=== PATIENT | female | born 1990 | race Caucasian/White ===

== ENCOUNTER 2017-05-12 09:43 | Emergency (ER) | payer OTHER ==
[2017-05-12 09:51] VITALS: BP 116/80; BMI 27.4
--- NOTE | 2017-05-12 10:15 | DR.EXTPAIN ---
HPI - Time seen Time seen: 10:15 - PCP Primary Care Physician: - Complaint/Symptoms Chief Complaint:: WAS IN A TREE, BRANCH SNAPPED. 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 - Family History History of Family Medical Conditions: Yes Family Medical History: Diabetes Mellitus, Cancer - Social History Does any household member use tobacco: No Alcohol Use: Occasionally Do you use any recreational Drugs:: No Lives With: Family Lives Where: Home - infectious screening In the last 2 months have you had wt loss of >10#?: NO Have you had fever, night sweats or hemotysis?: No Have you traveled outside the country in the last 6 months?: No Isolation: Standard ROS - Review of Systems Constitutional: No Symptoms Reported Eyes: No Symptoms Reported ENTM: No Symptoms Reported Respiratoy: No Symptoms Reported Cardiovascular: No Symptoms Reported Gastrointestinal/Abdominal: No Symptoms Reported Genitourinary: No Symptoms Reported Neurological: No Symptoms Reported Musculoskeletal: Ankle (left ankle pain, no bruise) PE - Vital Signs Vitals: Temperature 98.4 F Pulse Rate 94 Respiratory Rate 20 Blood Pressure 116/80 O2 Sat by Pulse Oximetry 100 - General Limitations: No Limitations General Appearance: Alert, In No Apparent Distress - Head Head Exam: Normal Inspection - Eyes Eye exam: Normal Appearance, EOMI. negative: Scleral Icterus, Conjunctival Injection - ENT ENT Exam: Normal Exam, Normal Oropharynx - Neck Neck Exam: Normal Inspection, Full ROM, Trachea Midline - Respiratory Respiratory Exam: negative: Accessory Muscle Use, Respiratory Distress - Extremities Extremities Exam: Normal Inspection, Full ROM, Tenderness (left ankle) - Lower Extremities Knee Exam: Normal Inspection, Full ROM. negative: Tenderness, Swelling Lower Leg Exam: Normal Inspection, Full ROM. negative: Tenderness, Swelling Ankle Exam: Normal Inspection, Full ROM, Tenderness, Swelling. negative: Abrasion, Laceration, Ecchymosis Foot/Toe Exam: Normal Inspection, Full ROM. negative: Tenderness, Swelling, Abrasion Gait Exam: Antalgic - Neurological Neurological Exam: Alert, Oriented X3, CN II-XII Intact - Psychiatric Psychiatric Exam: Normal Mood - Skin Skin Exam: Intact, Normal Color Type of Lesion: negative: Rash ROR - XRAY XRAY Interpreted by: Radiologist XRAY Findings: left ankle: no fx - Diagnosis Discharge Problem: Ankle sprain Qualifiers: Encounter type: initial encounter Involved ligament of ankle: unspecified ligament Laterality: left Qualified Code(s): S93.402A - Sprain of unspecified ligament of left ankle, initial encounter - Discharge Plan Condition: Stable Prescriptions: Ibuprofen [Motrin Tab 800 mg] 800 mg PO Q8H PRN #30 tab PRN Reason: Pain/Inflammation - Follow ups/Referrals Follow ups/Referrals: NFD,None [Primary Care Provider] - 3 days - Instructions
--- NOTE | 2017-05-12 10:34 | RAD ---
HISTORY: Twisting injury Study: Left ankle three view Comparison: None Findings: No acute cortical disruption or dislocation can be identified. The ankle mortise remains well align ed. No significant soft tissue swelling or injury can be seen. The visualized portions of the talu s and calcaneus are unremarkable. IMPRESSION: 1. Negative exam. Reported By:
== END 2017-05-12 11:02 | disposition home or self-care (01) ==
LOC: ER 10:00
DX: S93.492A Sprain of other ligament of left ankle, initial encounter (principal); W14.XXXA Fall from tree, initial encounter; Y92.89 Other specified places as the place of occurrence of the external cause; Y93.89 Activity, other specified
CPT/HCPCS: 73610; 99282; 99283